=== PATIENT | female | born 1980 | race Caucasian/White ===

== ENCOUNTER 2022-09-22 17:47 | Inpatient (IN) ==
--- NOTE | 2022-09-22 18:25 | ED Triage Note ---
Date of Service September 22, 2022 History of Present Illness This patient was briefly evaluated while in triage. An abbreviated physical exam was performed. This patient is a 41-year-old Female who presents to the ED for evaluation of abdominal pain in the right upper quadrant. Symptoms ongoing for 2 days. Norma yanes believes that it may be an issue with her gallbladder. She does report nausea and vomiting. Physical Exam VITALS: Vitals are noted on the nurse's note and reviewed by myself. GENERAL: This is a 41-year-old female, in no acute distress, well-developed well-nourished. SKIN: The skin was without rashes. MOUTH: Mucous membranes moist. HEART: Regular rate and rhythm without murmurs gallops or rubs. LUNGS: Clear to auscultation bilaterally without wheezes, rales or rhonchi. ABDOMEN: Positive bowel sounds x 4. Tenderness in the right upper quadrant. NEURO: Patient was alert and oriented to person place and time. Initial orders for labs and / or imaging were placed and patient was placed in the waiting area until a bed is available. Please see further documentation for the full ED course.
[2022-09-22 19:23] LABS: Basophils # (auto) 0.08 K/uL (0-0.2); Basophils % (auto) 0.9 %; Eosinophils # (auto) 0.03 K/uL (0-0.50); Eosinophils % (auto) 0.4 %; Hematocrit (blood only) 36.4 % (37.0-47.0); Hemoglobin 12.7 g/dl (12.0-16.0); Immature Granulocytes # (auto) 0.03 K/uL (0.01-0.20); Immature Granulocytes % (auto) 0.4 %; Lymphocytes # (auto) 1.12 K/uL (1.2-3.4); Lymphocytes % (auto) 13.2 %; Mean Corpuscular Hemoglobin 31.3 pg (25.0-34.0); Mean Corpuscular Hgb Conc 34.9 g/dL (32.0-36.0); Mean Corpuscular Volume 89.7 fL (80.0-100.0); Mean Platelet Volume 10.5 fL (9.4-12.4); Monocytes # (auto) 0.49 K/uL (0.11-0.59); Monocytes % (auto) 5.8 %; Neutrophils # (auto) 6.72 K/uL (1.40-6.50); Neutrophils % (auto) 79.3 %; Platelet Count 208 K/uL (130-400); RDW Coefficient of Variation 12.1 % (11.5-14.5); RDW Standard Deviation 39.5 fL (36.4-46.3); Red Blood Count 4.06 M/uL (4.20-5.40); White Blood Count 8.47 K/ul (4.8-10.8)
--- NOTE | 2022-09-22 19:29 | Emergency Department Note ---
Impression & Plan Biliary colic, Cholelithiasis, Abdominal pain, Transaminitis ED Provider Note NAME: TARI HESTER AGE: 41 SEX: F : 1980 ARRIVES VIA: Walk-In INFORMANT: Patient, ED PROVIDER(S): Tor Hartmann MD CHIEF COMPLAINT: Right upper quadrant pain MEDICAL DECISION MAKING: Patient presents due to concern for right upper quadrant pain. IV was established blood work was obtained. The patient declined any pain medication or nausea medication at this time. IV fluids ordered along with right upper quadrant ultrasound. I did review the patient's blood work which shows a normal white count hemoglobin and platelet count. Kidney function is unremarkable. The patient does have a transaminitis with an elevated bilirubin of 2.8. Patient's lipase is not elevated. Urinalysis without evidence of obvious infection. Patient's ultrasound does show gallbladder is dilated and filled with stones and sludge with gallbladder wall thickening. No pericholecystic fluid. I did speak with the on-call surgical PA Andrey Denny who did evaluate the patient. I did convey the findings and the patient I did speak the on-call hospitalist service and the patient was admitted to Dr. Nance. Antibiotics were ordered by surgical team after consultation. Prior /Outside records reviewed: None Differential diagnosis: Appendicitis, ovarian cyst, ovarian torsion, ectopic , TOA, PID, infections, diverticulitis, UTI, obstruction, mesenteric ischemia, aortic pathology, inflammatory bowel disease, renal colic, PUD, pancreatitis, biliary pathology, hernia, volvulus, constipation, as well as other pathologies. Diagnostics, as interpreted by me: ECG: None Cardiac monitoring: An order was placed for continuous cardiac monitoring. The monitor shows a rate of 72 with sinus rhythm. Patient was placed on pulse oximetry Medical decision rules: none Imaging studies: See below HPI: Patient presents due to concern for right upper quadrant pain. The patient states that it woke her up from sleep around 3 AM earlier this morning. The patient states that her symptoms have waxed and waned throughout the day not necessarily any worse with eating. The patient relates that she has had prior attacks over the last several months but was trying to wait till she saw her primary care doctor next week. Patient states that typically with her abdominal discomfort attacks they tend to go away with time but this 1 is never fully gone away. The patient did not take anything for it at home. The patient did feel dizzy at one point to where she felt like she was going to pass out but she just vomited. Patient denies any alcohol tobacco or drug use. No history of abdominal surgeries. PAST MEDICAL HISTORY: See Below PAST SURGICAL HISTORY: See Below SOCIAL HISTORY: See Below HOME MEDICATIONS: See Below ALLERGIES: See Below VITALS: See Below PHYSICAL EXAMINATION: GENERAL: NAD, wearing a mask, non-toxic. EYE EXAM: Normal conjunctiva. PERRL, no anisocoria and EOM's grossly intact w/o pain. NECK: Supple, no nuchal rigidity, no adenopathy, non-tender. No signs of meningismus. FROM of the neck with good chin to chest and neck extension. No stridor. LUNGS: Clear to auscultation. Normal chest wall mechanics. HEART: NSR, no MRG. ABDOMEN: Abdomen soft, right upper quadrant pain, positive Benavidez sign, no masses, no rebound or guarding. BACK: No CVA TTP. SKIN: No rashes and no bruising. UPPER EXTREMITIES: Upper extremities are grossly normal. LOWER EXTREMITIES: Grossly normal, no edema. NEURO EXAM: A&O x3, cranial nerves II-XII grossly intact, normal speech, moves all 4 extremities. Past Med/Surg History Medical History Anxiety Depression Renal colic on right side Surgical History No pertinent past surgical history Social History Smoking Status: Never smoker Preferred Language: Persian Feels Safe at Home: Yes Allergies Allergies Allergy/AdvReac Type Severity Reaction Status Date / Time No Known Allergies Allergy Unknown Verified 02/29/16 22:44 Home Meds Home Medications Medication Instructions Recorded Confirmed doxepin 50 mg capsule 50 mg PO HS 09/22/22 09/22/22 duloxetine 30 mg capsule,delayed 30 mg PO BID 09/22/22 09/22/22 release Results & Data (ED) Vital Signs Vital Signs - 24 hr 09/22/22 17:59 09/22/22 19:38 09/22/22 19:38 Temperature 36.8 C Temperature Source Temporal Artery Scan Pulse Rate 67 Pulse Rate [Finger] 69 Pulse Rhythm [Finger] Regular Respiratory Rate 20 18 Respiratory Effort / Characteristics Non-Labored Respiratory Depth Normal Normal Blood Pressure 145/77 H Blood Pressure [Right Arm] 135/80 Blood Pressure Mean 99 Blood Pressure Mean [Right Arm] 98 Blood Pressure Position Sitting Pulse Oximetry 100 99 Oxygen Delivery Method Room Air Room Air Room Air Sepsis Recent Fever Within 48 Hours No Sepsis New/Unexplained Change in Mental Status No Sepsis Action Taken by Nursing No Action Required 09/22/22 19:38 09/22/22 22:09 Temperature Temperature Source Pulse Rate Pulse Rate [Finger] 66 Pulse Rhythm [Finger] Respiratory Rate 18 Respiratory Effort / Characteristics Respiratory Depth Blood Pressure Blood Pressure [Right Arm] 140/74 Blood Pressure Mean Blood Pressure Mean [Right Arm] 96 Blood Pressure Position Pulse Oximetry 100 Oxygen Delivery Method Room Air Room Air Sepsis Recent Fever Within 48 Hours Sepsis New/Unexplained Change in Mental Status Sepsis Action Taken by [facility] Medications Current Medication List: was personally reviewed by me Laboratory Data Attestation: I reviewed the patient's lab results. 09/22/22 18:45 09/22/22 18:45 Lab Results 09/22/22 09/22/22 09/22/22 Range/Units 18:45 18:45 20:50 WBC 8.47 (4.8-10.8) K/ul RBC 4.06 L (4.20-5.40) M/uL Hgb 12.7 (12.0-16.0) g/dl Hct 36.4 L (37.0-47.0) % MCV 89.7 (80.0-100.0) fL MCH 31.3 (25.0-34.0) pg MCHC 34.9 (32.0-36.0) g/dL RDW Std Deviation 39.5 (36.4-46.3) fL RDW Coeff of Karen 12.1 (11.5-14.5) % Plt Count 208 (130-400) K/uL MPV 10.5 (9.4-12.4) fL Immature Gran % (Auto) 0.4 % Neut % (Auto) 79.3 % Lymph % (Auto) 13.2 % Woods % (Auto) 5.8 % Eos % (Auto) 0.4 % Baso % (Auto) 0.9 % Neut # (Auto) 6.72 H (1.40-6.50) K/uL Lymph # (Auto) 1.12 L (1.2-3.4) K/uL Woods # (Auto) 0.49 (0.11-0.59) K/uL Eos # (Auto) 0.03 (0-0.50) K/uL Baso # (Auto) 0.08 (0-0.2) K/uL Immature Gran # (Auto) 0.03 (0.01-0.20) K/uL Sodium 136 (136-145) mmol/L Potassium 3.8 (3.5-5.1) mmol/L Chloride 101 (98-107) mmol/L Carbon Dioxide 26 (21-32) mmol/L Anion Gap 9 (3-11) BUN 11 (6-23) mg/dl Creatinine 0.77 (0.6-1.2) mg/dl Est Cr Clr Drug Dosing Not Reportable Est GFR ( Amer) 111.9 ml/min Est GFR (Non-Af Amer) 96.6 ml/min BUN/Creatinine Ratio 14.3 (10-20) Glucose 117 H (70-99(Fasting)) mg/dl Calcium 9.7 (8.6-10.3) mg/dl Total Bilirubin 2.8 H (0.2-1.0) mg/dl AST 550 H (13-39) U/L ALT 323 H (7-52) U/L Alkaline Phosphatase 139 H (34-104) U/L Total Protein 7.7 (6.0-8.3) gm/dl Albumin 4.6 (3.4-5.0) gm/dl Globulin 3.1 (2.5-4.0) gm/dl Albumin/Globulin Ratio 1.5 (0.9-2) Lipase 26 (11-82) U/L Urine Color Dark Yellow Urine Appearance Clear (Clear) Urine pH 8.0 H (4.5-7.5) Ur Specific [place] 1.008 (1.000-1.030) Urine Protein Negative (Negative) Urine Glucose (UA) Negative (Negative) Urine Ketones Negative (Negative) Urine Blood Negative (Negative) Urine Nitrite Negative (Negative) Urine Bilirubin Negative (Negative) Urine Urobilinogen Negative (Negative) Ur Leukocyte Esterase 1+ H (Negative) Urine WBC (Auto) 1-5 (0-5) /hpf Urine RBC (Auto) 0-4 (0-4) /hpf U Hyaline Cast (Auto) 1-5 (0-5) /lpf U Epithel Cells (Auto) >30 H (0-5) /lpf Urine Bacteria (Auto) Negative (Negative) Urine Test (Negative) SARS-CoV-2, RNA, NAAT (NEGATIVE) 09/22/22 09/22/22 Range/Units 20:50 22:45 WBC (4.8-10.8) K/ul RBC (4.20-5.40) M/uL Hgb (12.0-16.0) g/dl Hct (37.0-47.0) % MCV (80.0-100.0) fL MCH (25.0-34.0) pg MCHC (32.0-36.0) g/dL RDW Std Deviation (36.4-46.3) fL RDW Coeff of Karen (11.5-14.5) % Plt Count (130-400) K/uL MPV (9.4-12.4) fL Immature Gran % (Auto) % Neut % (Auto) % Lymph % (Auto) % Woods % (Auto) % Eos % (Auto) % Baso % (Auto) % Neut # (Auto) (1.40-6.50) K/uL Lymph # (Auto) (1.2-3.4) K/uL Woods # (Auto) (0.11-0.59) K/uL Eos # (Auto) (0-0.50) K/uL Baso # (Auto) (0-0.2) K/uL Immature Gran # (Auto) (0.01-0.20) K/uL Sodium (136-145) mmol/L Potassium (3.5-5.1) mmol/L Chloride (98-107) mmol/L Carbon Dioxide (21-32) mmol/L Anion Gap (3-11) BUN (6-23) mg/dl Creatinine (0.6-1.2) mg/dl Est Cr Clr Drug Dosing Est GFR ( Amer) ml/min Est GFR (Non-Af Amer) ml/min BUN/Creatinine Ratio (10-20) Glucose (70-99(Fasting)) mg/dl Calcium (8.6-10.3) mg/dl Total Bilirubin (0.2-1.0) mg/dl AST (13-39) U/L ALT (7-52) U/L Alkaline Phosphatase (34-104) U/L Total Protein (6.0-8.3) gm/dl Albumin (3.4-5.0) gm/dl Globulin (2.5-4.0) gm/dl Albumin/Globulin Ratio (0.9-2) Lipase (11-82) U/L Urine Color Urine Appearance (Clear) Urine pH (4.5-7.5) Ur Specific [place] (1.000-1.030) Urine Protein (Negative) Urine Glucose (UA) (Negative) Urine Ketones (Negative) Urine Blood (Negative) Urine Nitrite (Negative) Urine Bilirubin (Negative) Urine Urobilinogen (Negative) Ur Leukocyte Esterase (Negative) Urine WBC (Auto) (0-5) /hpf Urine RBC (Auto) (0-4) /hpf U Hyaline Cast (Auto) (0-5) /lpf U Epithel Cells (Auto) (0-5) /lpf Urine Bacteria (Auto) (Negative) Urine Test Negative (Negative) SARS-CoV-2, RNA, NAAT NEGATIVE (NEGATIVE) Administered Medications Discontinued Medications Sodium Chloride (Nss 1000ml) 1,000 mls @ 999 mls/hr IV .Q1H1M ONE Stop: 09/22/22 20:59 Last Infusion: 09/22/22 21:22 Dose: 0 mls/hr Documented By: Admin: 09/22/22 20:17 Dose: 999 mls/hr Documented By: Cefoxitin Sodium (Mefoxin) 2,000 mg in 60 mls @ 100 mls/hr IV NOW STA Stop: 09/22/22 23:31 Last Admin: 09/22/22 23:32 Dose: 100 mls/hr Documented By: MED Imaging Data Radiologist's Impression: Gallbladder Ultrasound 09/22/22 18:02 Exam(s): US GALLBLADDER EXAM: US Abdomen Limited, Gallbladder CLINICAL HISTORY: Reason for exam: Ruq pain, vomiting. TECHNIQUE: Real-time ultrasound of the right upper quadrant with image documentation. COMPARISON: CT scan from February 29, 2016 FINDINGS: Liver: The liver measures 18.1 cm with mild fatty infiltration. No focal liver lesion is seen. The portal vein is patent nondilated with normal hepatopetal flow. Gallbladder: The gallbladder is dilated and filled with stones and sludge. The gallbladder wall is thickened measuring 5 mm. No pericholecystic fluid is seen. Sonographic Benavidez sign is positive. Common bile duct: The common bile duct is nondilated measuring 6 mm. Pancreas: The visualized portion of the pancreas is unremarkable. IMPRESSION: The gallbladder is dilated and filled with stones and sludge. The gallbladder wall is thickened measuring 5 mm. No pericholecystic fluid is seen. Sonographic Benavidez sign is positive. Consider acute cholecystitis. Electronically signed by: Cl Nance MD 09/22/22 22:14 PM Discharge Plan Visit Data Chief Complaint: Abdominal Pain Stated Complaint: PROBLEMS WITH GALBLADDER ED Provider: Tor Hartmann Discharge Problem: Biliary colic, Cholelithiasis, Abdominal pain, Transaminitis Patient Disposition: Admitted As Inpatient Discharge Instructions Interventions: ED Discharge Assessment Last Done: 09/23/22 02:10
[2022-09-22 19:41] LABS: Alanine Aminotransferase 323 U/L (7-52); Albumin Globulin Ratio 1.5 (0.9-2); Albumin Level 4.6 gm/dl (3.4-5.0); Alkaline Phosphatase 139 U/L (34-104); Anion Gap 9 (3-11); Aspartate Aminotransferase 550 U/L (13-39); BUN Creatinine Ratio 14.3 (10-20); Bilirubin,Total 2.8 mg/dl (0.2-1.0); Blood Urea Nitrogen 11 mg/dl (6-23); Calcium 9.7 mg/dl (8.6-10.3); Carbon Dioxide 26 mmol/L (21-32); Chloride 101 mmol/L (98-107); Est GFR (African American) 111.9 ml/min; Est GFR (Non-African American) 96.6 ml/min; Globulin 3.1 gm/dl (2.5-4.0); Glucose 117 mg/dl (70-99(Fasting)); Lipase 26 U/L (11-82); Potassium 3.8 mmol/L (3.5-5.1); Sodium 136 mmol/L (136-145); Total Protein 7.7 gm/dl (6.0-8.3)
[2022-09-22] MEDS ORDERED: SODIUM CHLORIDE 0.9% 1000ML 1,000 ML IV ONE (19:59)
[2022-09-22 21:15] LABS: Appearance Urine Clear (Clear); Bacteria Urine Automated Negative (Negative); Bilirubin Urine Negative (Negative); Blood Urine Negative (Negative); Color Urine Dark Yellow; Epithelial Cell Urine Auto >30 /lpf (0-5); Glucose Urine UA Negative (Negative); Ketones Urine Negative (Negative); Leukocyte Esterase Urine 1+ (Negative); Nitrite Urine Negative (Negative); Protein Urine Negative (Negative); RBC Urine Automated 0-4 /hpf (0-4); Specific Gravity Urine 1.008 (1.000-1.030); Urobilinogen Urine Negative (Negative)
[2022-09-22 21:16] LABS: Pregnancy Test, Urine Negative (Negative)
--- NOTE | 2022-09-22 22:14 | Ultrasound Report ---
Exam(s): US GALLBLADDER EXAM: US Abdomen Limited, Gallbladder CLINICAL HISTORY: Reason for exam: Ruq pain, vomiting. TECHNIQUE: Real-time ultrasound of the right upper quadrant with image documentation. COMPARISON: CT scan from February 29, 2016 FINDINGS: Liver: The liver measures 18.1 cm with mild fatty infiltration. No focal liver lesion is seen. The portal vein is patent nondilated with normal hepatopetal flow. Gallbladder: The gallbladder is dilated and filled with stones and sludge. The gallbladder wall is thickened measuring 5 mm. No pericholecystic fluid is seen. Sonographic Benavidez sign is positive. Common bile duct: The common bile duct is nondilated measuring 6 mm. Pancreas: The visualized portion of the pancreas is unremarkable. IMPRESSION: The gallbladder is dilated and filled with stones and sludge. The gallbladder wall is thickened measuring 5 mm. No pericholecystic fluid is seen. Sonographic Benavidez sign is positive. Consider acute cholecystitis. Electronically signed by: Cl Nance MD 09/22/22 22:14 PM
[2022-09-22] MEDS ORDERED: cefOXitin 2,000 MG/60 ML BAG IV STA (22:56)
--- NOTE | 2022-09-22 22:59 | Surgery Consultation ---
I discussed this case with the surgical PA and I agree with this plan. MRCP pending. Date of Consultation September 22, 2022 Assessment & Plan (1) Cholelithiasis: I discussed with the treating emergency room physician and I feel the patient is likely suffering from biliary colic. He is having the patient mid on the hospitalist service. We recommend proceeding as follows: Provide analgesics Provide antiemetics Provide IV fluid for hydration Follow serial labs Initiate antibiotics. I have ordered a dose of cefoxitin and this should continue while she is admitted to the hospital. A COVID test has been ordered. We will follow for the results of this I feel that the patient could have some clear liquids up until midnight tonight. I would then make her n.p.o. at that time. Due to the patient's elevated LFTs I feel it is prudent to obtain a GI consultation to see if they feel an ERCP is indicated. I have discussed with the patient due to her gallstones that she will likely require cholecystectomy but we would like to ascertain if she has choledocholithiasis so this can be treated before cholecystectomy is undertaken. I did discuss with the patient the procedure of cholecystectomy outlining the expected postoperative course. I did explain to the patient that if she has choledocholithiasis it would be preferable to treat this prior to undergoing cholecystectomy. Would recommend utilizing only SCDs for DVT prevention, no chemical means until is ascertained what procedures patient will require while she is hospitalized Additional recommendations be forthcoming based on GI recommendations and her clinical course as unfolds. History of Present Illness Reason for Consultation: Cholelithiasis History of Present Illness This is a 41-year-old female who presented to the emergency department secondary to abdominal pain. The patient says that for the past 6 months she has been having on and off right upper quadrant pain that usually lasts about 1 to 2 hours in duration and spontaneously resolves. She notes that the pain seems to be precipitated by eating greasy foods and eating heavy meals. She does not note any other provocative factors. She notes that the pain is sometimes palliated by using a heating pad but usually goes away on its own. With her pain she has not had any fevers but does report occasional chills and sweats wh en the pain occurs. As noted the pain usually only last 1 to 2 hours but the pain has now been present in excess of 24 hours which was out of the ordinary for her usual prompting her visit to the emergency department. With her current presentation she has had nausea and vomiting. In addition the patient notes that her pain radiates to her shoulder. She denies any prior abdominal surgeries. I question patient about her activities of daily living and she says she tries to lead an active lifestyle as she has many pets she has to care for. She resides in a two-story house and is able to negotiate steps without any exertional angina or shortness of breath. She is a lifetime non-smoker and has no family history of premature coronary artery disease. Since arrival to the emergency department the patient has had labs and imaging which I independent reviewed. The patient did have a gallbladder ultrasound that showed patient's gallbladder was dilated and filled with stones. The gallbladder wall was thickened measuring 5 mm. There is no pericholecystic fluid. The common bile duct was nondilated. The reporting technologist did report a positive sonographic Benavidez sign. Labs include a CBC were white blood cell count was normal. The patient's hemoglobin and platelet count was normal and the hematocrit was slightly low at 36.4. Chemistry profile showed sodium, potassium, BUN, and creatinine were normal. The patient was noted to have elevated LFTs with a total bilirubin of 2.8, AST of 550, ALT 323, and alkaline phosphatase of 139. Her lipase was nonelevated. Urinalysis was significant for 1+ leukocyte Estrace but was otherwise not indicative of infection. A urine test was negative. A COVID test was pending. At the time of my interview the patient was resting comfortably in bed and she was in no distress. Concerning past medical history the patient is treated for depression and anxiety Concerning past surgical history she denies any prior surgeries Concerning social history she is a lifetime non-smoker and does not consume alcohol Concerning family history the patient denies any family history of coronary artery disease Allergies Allergy/AdvReac Type Severity Reaction Status Date / Time No Known Allergies Allergy Unknown Verified 02/29/16 22:44 Home Medications Medication Instructions Recorded Confirmed Type doxepin 50 mg capsule 50 mg PO HS 09/22/22 09/22/22 History duloxetine 30 mg capsule,delayed 30 mg PO BID 09/22/22 09/22/22 History release Patient History Social History Smoking Status: Never smoker Preferred Language: Turkish Feels Safe at Home: Yes Review of Systems Constitutional: + chills; no fever Eyes: + corrective lenses Ear, Nose, Mouth, Throat: no hearing loss Respiratory: no cough and no dyspnea Cardiovascular: no chest pain Gastrointestinal: as per Subjective / HPI, + abdominal pain, + nausea and + vomiting Genitourinary: no dysuria Musculoskeletal: no back pain Integumentary: no rash Neurologic: no localized weakness Physical Exam Constitutional: WD/WN, vitals as above Eyes: + anicteric sclerae Corrective lenses noted ENMT: Ears: no hearing impairment and no external ear abnormality Sublingual jaundice is absent Neck: trachea midline Respiratory: normal respiratory effort, lungs clear to auscultation Cardiovascular: Rate/Rhythm: regular rate and regular rhythm Vessels: dorsalis pedis pulses present and radial pulses present Gastrointestinal (Abdomen): Abdomen is soft and nondistended. It is nonrigid. There is no rebound tenderness or guarding. There is no pain in the epigastric area. The patient did have pain in the right upper quadrant with a positive Benavidez sign. Musculoskeletal: No calf tenderness Skin: no rashes Neurologic: moves all extremities Psychiatric: A+Ox3, euthymic affect Results & Data Vital Signs (Past 12 Hours) Vital Signs Temp Pulse Pulse Resp BP BP Pulse Ox 09/22/22 22:09 66 18 140/74 100 09/22/22 19:38 09/22/22 19:38 69 18 135/80 99 09/22/22 19:38 09/22/22 17:59 36.8 C 67 20 145/77 H 100 O2 Del Method 09/22/22 22:09 Room Air 09/22/22 19:38 Room Air 09/22/22 19:38 Room Air 09/22/22 19:38 Room Air 09/22/22 17:59 Room Air PG Care Time/CCT Total # of Minutes Spent Total Time Spent with Patient: Total time spent is greater than 50% in coordination of care (as documented) at patient's floor/unit and/or counseling patient: Coding Level of Care Code 26214 IN/OBS CONSULT LVL 5,80M Diagnoses Cholelithiasis K80.20
--- NOTE | 2022-09-22 23:43 | History & Physical Report ---
Date of Service September 22, 2022 Assessment & Plan (1) Acute cholecystitis: Plan: 41-year-old female with 6-month history of biliary colic presenting with 1 day of chronic severe right upper quadrant pain with associated nausea, vomiting, sweats and chills. Work-up as above suggestive of acute cholecystitis. Also with abnormal liver studies AST = 550, ALT = 323, alkaline phosphatase = 139 and total bilirubin = 2.8 Admit to medical Trend liver studies Check MRCP GI consultation for possible ERCP General surgery consult appreciated Pain control with morphine as needed Zofran as needed for nausea Continue IV antibiotics Mefoxin (2) Abnormal liver function test: Plan: As above. MRCP GI consult Repeat labs in a.m. (3) Depression: Plan: Chronic. Continue home Cymbalta and doxepin F/E/NLR at 80 mL/h x 2 L, electrolytes within normal limits, n.p.o. ProphylaxisSCDs to bilateral lower extremities Codef[place] per discussion with patient Dispositionadmit to medical History of Present Illness Chief Complaint: Right upper quadrant pain Primary Care Provider: Leigh Ann Merrill Michelle Albarran is a pleasant 41-year-old female with no significant past medical or surgical history presenting with acute onset of right upper quadrant pain. Patient reports she has experienced intermittent right upper quadrant pain ongoing for the last 6 months. Yesterday 09/22/2022 around 03 100 patient developed acute onset of severe right upper quadrant pain. The pain has been more persistent than prior episodes, is fairly severe at times and has been constant throughout the day. Also with nausea with several episodes of nonbloody/nonbilious vomiting, sweats and chills. She had some mild diarrhea as well. No additional complaints at this time. Patient specifically denies chest pain, palpitations, cough, shortness of breath. Denies urinary symptoms. Denies rash. In the ER she is afebrile, hemodynamically stable and nontoxic in appearance Work-up suggestive of acute cholecystitis with abnormal liver studies as below. She was evaluated by general surgery ER course: Cefoxitin, normal saline solution Allergies Allergy/AdvReac Type Severity Reaction Status Date / Time No Known Allergies Allergy Unknown Verified 02/29/16 22:44 Home Medications Medication Instructions Recorded Confirmed Type doxepin 50 mg capsule 50 mg PO HS 09/22/22 09/22/22 History duloxetine 30 mg capsule,delayed 30 mg PO BID 09/22/22 09/22/22 History release Past Med/Surg History Medical History (Updated 09/23/22 @ 03:08 by Berta Nance DO) Anxiety Depression Renal colic on right side Surgical History No pertinent past surgical history Social History Smoking Status: Never smoker Preferred Language: Citizen Of [place] Feels Safe at Home: Yes Review of Systems Review of Systems: All systems reviewed & are unremarkable except as noted in HPI & below Physical Exam Physical Exam: General: patient resting comfortably, NAD, non-toxic in appearance, AA&O x 4 Skin: warm, dry, intact, no rashes or lesions HEENT: NC/AT, PERRL, EOMI, anicteric sclera, conjunctiva without injection, external ear normal to inspection and nontender, nares patent, moist mucus membranes, dentition intact, no oropharyngeal lesions, neck supple, trachea midline, no LAD, no thyromegaly, no JVD Heart: +S1/S2, regular, no m/r/g Lungs: equal air entry bilaterally, no rales/rhonchi/wheezes Abd: +BS, soft, ND, right upper quadrant tenderness with no rebound/guarding or peritonitis, positive Benavidez sign, no masses/organomegaly/ascites Ext: warm, 2+ pulses in UE/LE bilaterally, no clubbing/cyanosis or edema Neuro: nonfocal, patient AA&O x 4, speech intact, no facial droop, moving all extremities on command with equal strength 5/5 Results & Data Results & Data Vital Signs (Past 12 Hours) Vital Signs Temp Pulse Pulse Resp BP BP Pulse Ox 09/22/22 22:09 66 18 140/74 100 09/22/22 19:38 09/22/22 19:38 69 18 135/80 99 09/22/22 19:38 09/22/22 17:59 36.8 C 67 20 145/77 H 100 O2 Del Method 09/22/22 22:09 Room Air 09/22/22 19:38 Room Air 09/22/22 19:38 Room Air 09/22/22 19:38 Room Air 09/22/22 17:59 Room Air Laboratory Results Laboratory Results WBC 8.47 K/ul (4.8-10.8) 09/22/22 18:45 RBC 4.06 M/uL (4.20-5.40) L 09/22/22 18:45 Hgb 12.7 g/dl (12.0-16.0) 09/22/22 18:45 Hct 36.4 % (37.0-47.0) L 09/22/22 18:45 MCV 89.7 fL (80.0-100.0) 09/22/22 18:45 MCH 31.3 pg (25.0-34.0) 09/22/22 18:45 MCHC 34.9 g/dL (32.0-36.0) 09/22/22 18:45 RDW Std Deviation 39.5 fL (36.4-46.3) 09/22/22 18:45 RDW Coeff of Karen 12.1 % (11.5-14.5) 09/22/22 18:45 Plt Count 208 K/uL (130-400) 09/22/22 18:45 MPV 10.5 fL (9.4-12.4) 09/22/22 18:45 Immature Gran % (Auto) 0.4 % 09/22/22 18:45 Neut % (Auto) 79.3 % 09/22/22 18:45 Lymph % (Auto) 13.2 % 09/22/22 18:45 [place] % (Auto) 5.8 % 09/22/22 18:45 Eos % (Auto) 0.4 % 09/22/22 18:45 Baso % (Auto) 0.9 % 09/22/22 18:45 Neut # (Auto) 6.72 K/uL (1.40-6.50) H 09/22/22 18:45 Lymph # (Auto) 1.12 K/uL (1.2-3.4) L 09/22/22 18:45 [place] # (Auto) 0.49 K/uL (0.11-0.59) 09/22/22 18:45 Eos # (Auto) 0.03 K/uL (0-0.50) 09/22/22 18:45 Baso # (Auto) 0.08 K/uL (0-0.2) 09/22/22 18:45 Immature Gran # (Auto) 0.03 K/uL (0.01-0.20) 09/22/22 18:45 Sodium 136 mmol/L (136-145) 09/22/22 18:45 Potassium 3.8 mmol/L (3.5-5.1) 09/22/22 18:45 Chloride 101 mmol/L (98-107) 09/22/22 18:45 Carbon Dioxide 26 mmol/L (21-32) 09/22/22 18:45 Anion Gap 9 (3-11) 09/22/22 18:45 BUN 11 mg/dl (6-23) 09/22/22 18:45 Creatinine 0.77 mg/dl (0.6-1.2) 09/22/22 18:45 Est Cr Clr Drug Dosing Not Reportable 09/22/22 18:45 Est GFR ( Amer) 111.9 ml/min 09/22/22 18:45 Est GFR (Non-Af Amer) 96.6 ml/min 09/22/22 18:45 BUN/Creatinine Ratio 14.3 (10-20) 09/22/22 18:45 Glucose 117 mg/dl (70-99(Fasting)) H 09/22/22 18:45 Calcium 9.7 mg/dl (8.6-10.3) 09/22/22 18:45 Total Bilirubin 2.8 mg/dl (0.2-1.0) H 09/22/22 18:45 AST 550 U/L (13-39) H 09/22/22 18:45 ALT 323 U/L (7-52) H 09/22/22 18:45 Alkaline Phosphatase 139 U/L (34-104) H 09/22/22 18:45 Total Protein 7.7 gm/dl (6.0-8.3) 09/22/22 18:45 Albumin 4.6 gm/dl (3.4-5.0) 09/22/22 18:45 Globulin 3.1 gm/dl (2.5-4.0) 09/22/22 18:45 Albumin/Globulin Ratio 1.5 (0.9-2) 09/22/22 18:45 Lipase 26 U/L (11-82) 09/22/22 18:45 Urine Color Dark Yellow 09/22/22 20:50 Urine Appearance Clear (Clear) 09/22/22 20:50 Urine pH 8.0 (4.5-7.5) H 09/22/22 20:50 Ur Specific [place] 1.008 (1.000-1.030) 09/22/22 20:50 Urine Protein Negative (Negative) 09/22/22 20:50 Urine Glucose (UA) Negative (Negative) 09/22/22 20:50 Urine Ketones Negative (Negative) 09/22/22 20:50 Urine Blood Negative (Negative) 09/22/22 20:50 Urine Nitrite Negative (Negative) 09/22/22 20:50 Urine Bilirubin Negative (Negative) 09/22/22 20:50 Urine Urobilinogen Negative (Negative) 09/22/22 20:50 Ur Leukocyte Esterase 1+ (Negative) H 09/22/22 20:50 Urine WBC (Auto) 1-5 /hpf (0-5) 09/22/22 20:50 Urine RBC (Auto) 0-4 /hpf (0-4) 09/22/22 20:50 U Hyaline Cast (Auto) 1-5 /lpf (0-5) 09/22/22 20:50 U Epithel Cells (Auto) >30 /lpf (0-5) H 09/22/22 20:50 Urine Bacteria (Auto) Negative (Negative) 09/22/22 20:50 Urine Test Negative (Negative) 09/22/22 20:50 SARS-CoV-2, RNA, NAAT NEGATIVE (NEGATIVE) 09/22/22 22:45 Impressions Gallbladder Ultrasound 09/22/22 18:02 Exam(s): US GALLBLADDER EXAM: US Abdomen Limited, Gallbladder CLINICAL HISTORY: Reason for exam: Ruq pain, vomiting. TECHNIQUE: Real-time ultrasound of the right upper quadrant with image documentation. COMPARISON: CT scan from February 29, 2016 FINDINGS: Liver: The liver measures 18.1 cm with mild fatty infiltration. No focal liver lesion is seen. The portal vein is patent nondilated with normal hepatopetal flow. Gallbladder: The gallbladder is dilated and filled with stones and sludge. The gallbladder wall is thickened measuring 5 mm. No pericholecystic fluid is seen. Sonographic Benavidez sign is positive. Common bile duct: The common bile duct is nondilated measuring 6 mm. Pancreas: The visualized portion of the pancreas is unremarkable. IMPRESSION: The gallbladder is dilated and filled with stones and sludge. The gallbladder wall is thickened measuring 5 mm. No pericholecystic fluid is seen. Sonographic Benavidez sign is positive. Consider acute cholecystitis. Electronically signed by: Cl Nance MD 09/22/22 22:14 PM PG Care Time/CCT Total # of Minutes Spent Total Time Spent with Patient: Total time spent is greater than 50% in coordination of care (as documented) at patient's floor/unit and/or counseling patient: Coding Level of Care Code 53305 INT INP/OBS CARE 2/MIN Diagnoses Acute cholecystitis K81.0 Abnormal liver function test R79.89 Depression F32.9
[2022-09-23] MEDS ORDERED: ACETAMINOPHEN 325 MG TAB PO PRN (01:56)
[2022-09-23] MEDS ORDERED: MoRPHine SULFATE 2 MG/ML CARP IV PRN ×2 (01:56)
[2022-09-23] MEDS ORDERED: ONDANSETRON INJ 2 MG/ML 2 ML VIAL IV PRN ×2 (01:56→16:02)
[2022-09-23] MEDS ORDERED: DOCUSATE SODIUM 100 MG CAP PO PRN (01:56)
[2022-09-23] MEDS ORDERED: POLYETHYLENE (MIRALAX) 17 GM PACK PO PRN (01:56)
[2022-09-23] MEDS: LACTATED RINGER'S 1,000 ML IV SCH ×2 (02:40→16:47)
[2022-09-23] MEDS: DULoxetine HCL 30 MG CAP PO SCH ×3 (03:27→21:34)
[2022-09-23] MEDS: DOXEPIN HCL 50 MG CAPSULE PO SCH ×2 (03:27→21:34)
[2022-09-23] MEDS: cefOXitin 2,000 MG in DEXTROSE 5% 50 ML IV SCH ×4 (05:57→23:45)
--- NOTE | 2022-09-23 08:23 | Gastrointestinal Consultation ---
Supervising physician note As supervising physician for JANET Chow I have discussed the case and plans for this patient with Jenniffer Williamson. I agree she needs ERCP and will be managed by the interventional team from [facility]. Then she will have surgery. I have spent 15 minutes reviewing the records and discussing the ultimate plan with JANET Chow. I did not examine the patient as she has been seen by the other GI service. Date of Consultation September 23, 2022 Assessment & Plan (1) Abnormal liver function test: Acute cholecystitis with abnormal liver function testing: Patient has had approximately 6-month history of biliary colic with worsening of abdominal pain 2 days ago. Right upper quadrant ultrasound consistent with dilated gallbladder filled with stones and sludge and thickened gallbladder wall measuring 5 mm - findings consistent with acute cholecystitis. LFT elevation consistent with gallbladder obstruction noted on ultrasound. Surgical services were consulted who requested GI consult to determine if ERCP is indicated. Medicine service has ordered MRCP which is pending. I have discussed patient case with the [facility] service to determine if ERCP will be completed. We will continue to monitor. Case reviewed with Dr. Gary. Please refer to supervising physician addendum for further recommendations. I have spent 30 minutes of discrete time performing the activities of this visit which include but are not limited to review of the medical record, obtaining a history, physical exam, and entering information in the electronic record. (2) Acute cholecystitis: History of Present Illness Attending Physician: Willie Wang MD History of Present Illness The patient is a pleasant 41-year-old female with a by 6-month history of biliary colic who presented with severe right upper quadrant pain that began 09/21/2022. Imaging suggestive of acute cholecystitis with abnormal liver studies AST = 550, ALT = 323, alkaline phosphatase = 139 and total bilirubin = 2.8. The GI service was consulted at request of surgery as LFTs are elevated to determine if ERCP is indicated. The patient reports that she has had gallbladder attacks now going on for months. She gets right upper quadrant pain lasting approximately 2 to 4 hours. Pain worsened Tuesday morning around 2 AM. Reports the pain currently is well controlled unless she presses on her right upper abdomen. She had associated nausea and vomiting with sweats and chills. Denies fever. Reports 2 days of liquid stools with last bowel movement being 09/22/2022. Her last menstrual period began early July 2022. She does have regular menses. Lifetime non-smoker. Denies alcohol intake. Denies recreational drug use including marijuana. She is a single mother with 3 children ages 21, 18, 14. She does not work outside of her home. Allergies Allergy/AdvReac Type Severity Reaction Status Date / Time No Known Allergies Allergy Unknown Verified 02/29/16 22:44 Home Medications Medication Instructions Recorded Confirmed Type doxepin 50 mg capsule 50 mg PO HS 09/22/22 09/22/22 History duloxetine 30 mg capsule,delayed 30 mg PO BID 09/22/22 09/22/22 History release Patient History Medical History Anxiety Depression Renal colic on right side Surgical History No pertinent past surgical history Social History Smoking Status: Never smoker Hx Alcohol Use: No Hx Substance Use: No Preferred Language: Maltese Communication Ability: Effective 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 Beliefs That Will Affect Care: None Current Living Situation: Alone Other Information That Helps Us Care for You: No Feels Safe at Home: Yes Safety Concerns: Feels Safe At This Time Assistive Devices: Glasses Review of Systems Review of Systems: All systems reviewed & are unremarkable except as noted in Subjective Physical Exam Constitutional: WD/WN, vitals as above Respiratory: normal respiratory effort, lungs clear to auscultation Cardiovascular: RRR, no murmur, no edema Gastrointestinal (Abdomen): Inspection/Auscultation: abdomen normal to inspection and normal bowel sounds Percussion/Palpation: + abdomen tender (RUQ) and abdomen soft; no guarding and abdomen not rigid Skin: + jaundice Results & Data Vital Signs (Past 12 Hours) Vital Signs Temp Pulse Resp BP BP Pulse Ox O2 Del Method 09/23/22 07:10 37.1 C 65 16 124/80 99 Room Air 09/23/22 02:37 37.1 C 64 18 125/79 99 Room Air 09/23/22 02:10 100 Room Air 09/23/22 02:04 63 20 129/65 100 Room Air 09/22/22 22:09 66 18 140/74 100 Room Air Laboratory Results Laboratory Results - last 24 hr 09/22/22 09/22/22 09/22/22 18:45 18:45 20:50 WBC 8.47 RBC 4.06 L Hgb 12.7 Hct 36.4 L MCV 89.7 MCH 31.3 MCHC 34.9 RDW Std Deviation 39.5 RDW Coeff of Karen 12.1 Plt Count 208 MPV 10.5 Immature Gran % (Auto) 0.4 Neut % (Auto) 79.3 Lymph % (Auto) 13.2 [place] % (Auto) 5.8 Eos % (Auto) 0.4 Baso % (Auto) 0.9 Neut # (Auto) 6.72 H Lymph # (Auto) 1.12 L [place] # (Auto) 0.49 Eos # (Auto) 0.03 Baso # (Auto) 0.08 Immature Gran # (Auto) 0.03 Sodium 136 Potassium 3.8 Chloride 101 Carbon Dioxide 26 Anion Gap 9 BUN 11 Creatinine 0.77 Est Cr Clr Drug Dosing Not Reportable Est GFR ( Amer) 111.9 Est GFR (Non-Af Amer) 96.6 BUN/Creatinine Ratio 14.3 Glucose 117 H Calcium 9.7 Total Bilirubin 2.8 H AST 550 H ALT 323 H Alkaline Phosphatase 139 H Total Protein 7.7 Albumin 4.6 Globulin 3.1 Albumin/Globulin Ratio 1.5 Lipase 26 Urine Color Dark Yellow Urine Appearance Clear Urine pH 8.0 H Ur Specific [place] 1.008 Urine Protein Negative Urine Glucose (UA) Negative Urine Ketones Negative Urine Blood Negative Urine Nitrite Negative Urine Bilirubin Negative Urine Urobilinogen Negative Ur Leukocyte Esterase 1+ H Urine WBC (Auto) 1-5 Urine RBC (Auto) 0-4 U Hyaline Cast (Auto) 1-5 U Epithel Cells (Auto) >30 H Urine Bacteria (Auto) Negative Urine Test SARS-CoV-2, RNA, NAAT 09/22/22 09/22/22 20:50 22:45 WBC RBC Hgb Hct MCV MCH MCHC RDW Std Deviation RDW Coeff of Karen Plt Count MPV Immature Gran % (Auto) Neut % (Auto) Lymph % (Auto) [place] % (Auto) Eos % (Auto) Baso % (Auto) Neut # (Auto) Lymph # (Auto) [place] # (Auto) Eos # (Auto) Baso # (Auto) Immature Gran # (Auto) Sodium Potassium Chloride Carbon Dioxide Anion Gap BUN Creatinine Est Cr Clr Drug Dosing Est GFR ( Amer) Est GFR (Non-Af Amer) BUN/Creatinine Ratio Glucose Calcium Total Bilirubin AST ALT Alkaline Phosphatase Total Protein Albumin Globulin Albumin/Globulin Ratio Lipase Urine Color Urine Appearance Urine pH Ur Specific [place] Urine Protein Urine Glucose (UA) Urine Ketones Urine Blood Urine Nitrite Urine Bilirubin Urine Urobilinogen Ur Leukocyte Esterase Urine WBC (Auto) Urine RBC (Auto) U Hyaline Cast (Auto) U Epithel Cells (Auto) Urine Bacteria (Auto) Urine Test Negative SARS-CoV-2, RNA, NAAT NEGATIVE Diagnostic Findings Gallbladder Ultrasound 09/22/22 18:02 Exam(s): US GALLBLADDER EXAM: US Abdomen Limited, Gallbladder CLINICAL HISTORY: Reason for exam: Ruq pain, vomiting. TECHNIQUE: Real-time ultrasound of the right upper quadrant with image documentation. COMPARISON: CT scan from February 29, 2016 FINDINGS: Liver: The liver measures 18.1 cm with mild fatty infiltration. No focal liver lesion is seen. The portal vein is patent nondilated with normal hepatopetal flow. Gallbladder: The gallbladder is dilated and filled with stones and sludge. The gallbladder wall is thickened measuring 5 mm. No pericholecystic fluid is seen. Sonographic Benavidez sign is positive. Common bile duct: The common bile duct is nondilated measuring 6 mm. Pancreas: The visualized portion of the pancreas is unremarkable. IMPRESSION: The gallbladder is dilated and filled with stones and sludge. The gallbladder wall is thickened measuring 5 mm. No pericholecystic fluid is seen. Sonographic Benavidez sign is positive. Consider acute cholecystitis. Electronically signed by: Cl Nance MD 09/22/22 22:14 PM
[2022-09-23 08:58] LABS: Hematocrit (blood only) 32.1 % (37.0-47.0); Hemoglobin 11.2 g/dl (12.0-16.0); Mean Corpuscular Hemoglobin 31.5 pg (25.0-34.0); Mean Corpuscular Hgb Conc 34.9 g/dL (32.0-36.0); Mean Corpuscular Volume 90.2 fL (80.0-100.0); Mean Platelet Volume 10.6 fL (9.4-12.4); Platelet Count 158 K/uL (130-400); RDW Coefficient of Variation 12.2 % (11.5-14.5); RDW Standard Deviation 40.2 fL (36.4-46.3); Red Blood Count 3.56 M/uL (4.20-5.40); White Blood Count 4.85 K/ul (4.8-10.8)
[2022-09-23] MEDS ORDERED: DULoxetine HCL 30 MG CAP PO SCH (09:00)
[2022-09-23 09:02] LABS: Albumin Level 3.9 gm/dl (3.4-5.0); BUN Creatinine Ratio 10.1 (10-20); Bilirubin Direct 2.9 mg/dl (0-0.2); Bilirubin,Total 4.8 mg/dl (0.2-1.0); Calcium 8.8 mg/dl (8.6-10.3); Creatinine Clr Calc Pharmacy 93.5 ml/min; Est GFR (African American) 108.5 ml/min; Est GFR (Non-African American) 93.6 ml/min; Potassium 3.7 mmol/L (3.5-5.1); Total Protein 6.3 gm/dl (6.0-8.3)
--- NOTE | 2022-09-23 09:37 | Magnetic Resonance Report ---
MRCP CLINICAL HISTORY: acute cholecystitis - abnormal LFTs TECHNIQUE: Utilizing a 1.5 Yusra magnet and dedicated coil, multiplanar, multiecho imaging of the [facility] abdomen was performed utilizing heavily T2 weighted pulsing sequences without IV contrast. COMPARISON STUDY: CT of the abdomen and pelvis February 29, 2016. Right upper quadrant ultrasound September 22, 2022. FINDINGS: Caliber of the common bile duct is at upper limits of normal, measuring 6 mm. There are denis pected small filling defects within the dependent aspect of the distal common bile duct. These favor small common bile duct calculi. There are numerous gallstones within the gallbladder. The gallbladder is mildly distended. No pericholecystic fluid is present. No hepatic lesions are identified on this unenhanced exam. Spleen, adrenal glands and kidneys are normal. There is no peripancreatic infiltrati on or fluid. There is no pancreatic ductal dilatation. The caliber of visualized small and large keyana l are normal. IMPRESSION: 1. Suspected small distal common bile duct calculi. Top normal caliber common bile duct. 2. Cholelithiasis with mild gallbladder distention. If clinically indicated, a hepatobiliary scan cou ld be obtained to evaluate for acute cholecystitis. ACT 112: Negative or not required by law. Electronically signed by: Anthony Martinez M.D. 09/23/2022 9:34 AM
--- NOTE | 2022-09-23 10:50 | Communication Note ---
Date of Service: September 23, 2022 This is a 41 y/o female admitted with 6 months of intermittent RUQ pain suggestive of biliary colic, and presented with RUQ abd pain, US ABD suggesting a dilated gallbladder filled with stones and sludge, and elevated LFTs. We were asked to evaluate this pt for possible ERCP. AST 550-->311 ALT 323 -->284 ALP 139-->146 Tbili 2.8-->4.8 Dbili 2.9 WBC 8-->4.8 HGB 12.7-->11.2 Lipase 26 She was seen briefly. States her pain is relieved with analgesia. Denies current abd pain, n/v, melena, hematochezia, fever, chills, jaundice, CP, SOB. 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 Denies ETOH, tobacco, new medication use. No prior surgeries. Gen: NAD, afebrile HEENT: Slight icterus Resp: Normal resp effort Cardiac: RRR ABD: Soft, mild RUQ TTP, no rebound, guarding, distention. BS x 4 quadrants Skin: Warm, dry Neuro: AAO x 3 - MRCP today as below: FINDINGS: Caliber of the common bile duct is at upper limits of normal, measuring 6 mm. There are suspected small filling defects within the dependent aspect of the distal common bile duct. These favor small common bile duct calculi. There are numerous gallstones within the gallbladder. The gallbladder is mildly distended. No pericholecystic fluid is present. No hepatic lesions are identified on this unenhanced exam. Spleen, adrenal glands and kidneys are normal. There is no peripancreatic infiltration or fluid. There is no pancreatic ductal dilatation. The caliber of visualized small and large bowel are normal. IMPRESSION: 1. Suspected small distal common bile duct calculi. Top normal caliber common bile duct. 2. Cholelithiasis with mild gallbladder distention. If clinically indicated, a hepatobiliary scan could be obtained to evaluate for acute cholecystitis. Assessment: 41 y/o female with RUQ abd pain, imaging suggestive of cholelithiasis, w/ dilated gallbladder, and MRCP suggesting small distal common duct calculi, CBD 6 mm which is top normal. Overall presentation consistent with cholelithiasis and suggestion of choledocholithiasis based upon imaging and lab results. We were asked to evaluate her for possible ERCP. Plan: - Keep NPO - IVF, empiric IV ABX as per primary/surgical service - Discussed case with attending and advanced endoscopist. - We would like to arrange EUS +/- ERCP today for suspected choledocholithiasis pending OR availability, time to be determined by them - Surgery consult to evaluate for cholecystectomy Please see addendum below with additional recommendation from my supervising physician I have personally seen and examined the patient with Elidia Cosme PA-C. Her note reflects my exam and findings. I agree with her impression and plan. Will plan on ERCP today. Jhon Haynes M.D.
--- NOTE | 2022-09-23 12:47 | Anesthesiology Consultation ---
Date of Service September 23, 2022 Assessment & Plan ASA ASA2 Proposed Anesthesia Anesthesia Type: MAC Risk / Benefits Reviewed With: PT / POA / Parent / Guardian, Accepts Plan and Informed Consent Obtained History Surgery Operation Date: 09/23/22 13:30 Proposed Procedures p Endoscopic Retrograde Cholangiopancreato - Gayathri Harrington DO s Endoscopic Ultrasonography Upper - Gayathri Harrington DO Height/Weight Height: 5 ft 1 in Weight: 84.8 kg Allergies Allergy/AdvReac Type Severity Reaction Status Date / Time No Known Allergies Allergy Unknown Verified 02/29/16 22:44 Medications Home Medications Medication Instructions Recorded Confirmed Last Taken doxepin 50 mg capsule 50 mg PO HS 09/22/22 09/22/22 Unknown duloxetine 30 mg capsule,delayed 30 mg PO BID 09/22/22 09/22/22 Unknown release Active Medications Generic Name Dose Route Start Last Admin Trade Name Freq PRN Reason Stop Dose Admin Doxepin HCl 50 mg 09/23/22 03:15 09/23/22 03:27 Doxepin Hcl 50 Mg Capsule PO 10/23/22 03:14 50 mg HS MARIO Administration Duloxetine HCl 30 mg 09/23/22 03:15 09/23/22 07:46 Duloxetine Hcl 30 Mg Cap PO 10/23/22 03:14 30 mg BID MARIO Administration Cefoxitin Sodium 2,000 mg/ 60 mls @ 100 mls/hr 09/23/22 06:00 09/23/22 11:58 Dextrose IV 10/03/22 05:59 100 mls/hr Q6H MARIO Administration Lactated Ringer's 1,000 mls @ 80 mls/hr 09/23/22 01:56 09/23/22 02:40 Lr IV 09/24/22 02:55 80 mls/hr .[id number] MARIO Administration Morphine Sulfate 2 mg 09/23/22 01:56 09/23/22 02:40 Morphine Sulfate 2 Mg/Ml Carp IV 10/07/22 01:55 2 mg Q3H PRN Administration Pain (6,7,8,9,10) NPO Date Last Intake of Fluids: 09/23/22 Time Last Intake of Fluids: 08:00 Last Intake of Fluids Comment: sip with meds Date Last Intake of Solids: 09/22/22 Time Last Intake of Solids: 10:00 Past Medical History Medical History Anxiety Depression Renal colic on right side Exercise / Class Metabolic Activity II 4-5 Yardwork/Stairs/Walk up hill Past Surgical History Surgical History No pertinent past surgical history Past Anesthesia History No Hx of Anesthesia Complications and No Family Hx of Anesthesia Complications History of PONV No Hx of PONV and No Hx of Motion Sickness Social History Smoking Status: Never smoker Hx Alcohol Use: No Hx Substance Use: No Review of Systems denies fever/cough/ colds/ chest pain/ SOB/ CODI denies CODI Physical Exam Vital Signs Last Vital Signs Temp 36.8 C 09/23/22 12:23 Pulse 77 09/23/22 12:23 Resp 20 09/23/22 12:23 BP 148/86 H 09/23/22 12:23 Pulse Ox 98 09/23/22 12:23 O2 Del Method Room Air 09/23/22 12:23 ENMT Mouth: + poor dentition (pt with multiple, chipped,missing, broken teeth. most glaring noted); no TMJ abnormality and no dentition abnormality Thyromental Distance: > or= 3.5 Finger Breadths Mallampati Class: III Mouth / Teeth: 1. broken 2. gapped, tooth root Neck neck extension not limited Respiratory normal respiratory effort; no respiratory distress Auscultation: lungs clear to auscultation bilaterally Cardiovascular Rate/Rhythm: regular rate and regular rhythm Neurologic moves all extremities Psychiatric Orientation: alert and oriented x 3 Testing Laboratory Results 09/23/22 08:04 09/23/22 08:04 Urine Color Dark Yellow 09/22/22 20:50 Urine Appearance Clear (Clear) 09/22/22 20:50 Urine pH 8.0 (4.5-7.5) H 09/22/22 20:50 Ur Specific [place] 1.008 (1.000-1.030) 09/22/22 20:50 Urine Protein Negative (Negative) 09/22/22 20:50 Urine Glucose (UA) Negative (Negative) 09/22/22 20:50 Urine Ketones Negative (Negative) 09/22/22 20:50 Urine Nitrite Negative (Negative) 09/22/22 20:50 Ur Leukocyte Esterase 1+ (Negative) H 09/22/22 20:50 Urine WBC (Auto) 1-5 /hpf (0-5) 09/22/22 20:50 Urine RBC (Auto) 0-4 /hpf (0-4) 09/22/22 20:50 U Hyaline Cast (Auto) 1-5 /lpf (0-5) 09/22/22 20:50 U Epithel Cells (Auto) >30 /lpf (0-5) H 09/22/22 20:50 Urine Bacteria (Auto) Negative (Negative) 09/22/22 20:50 Urine Test Negative (Negative) 09/22/22 20:50 09/22/22 20:50 Urine Test Negative
--- NOTE | 2022-09-23 12:49 | History & Physical Bridge Note ---
Date of Service September 23, 2022 History & Physical Bridge Note I have examined the patient, reviewed the History & Physical and in the interval since the performance of the History & Physical I have noted the following changes of clinical significance: no changes noted. Patient presented with abdominal pain and now has a significant elevation of her liver associated enzymes with a bilirubin of greater than 4. Her MRCP does indicate that there are filling defects within the distal common bile duct. The next best step would be ERCP for biliary sphincterotomy and gallstone extraction. I discussed the risks and benefits of ERCP with the patient to include bleeding, infection, perforation, pain failed biliary cannulation and need for follow-up studies.
[2022-09-23] MEDS ORDERED: LIDOCAINE 2% 2 ML VIAL/AMP(20MG/ML) INFIL ONE (12:53)
[2022-09-23] MEDS ORDERED: PROPOFOL IV EMULSION 10 MG/ML 20 ML VIAL IV ONE ×2 (12:53→13:14)
[2022-09-23] MEDS ORDERED: fentaNYL citrate PF 100 MCG/2 ML VIAL ONE ×3 (13:12→16:04)
[2022-09-23] MEDS ORDERED: ROCURONIUM BROMIDE 10 MG/ML 5 ML VIAL IV ONE ×3 (13:12→14:57)
[2022-09-23] MEDS ORDERED: MIDAZOLAM HCL 1 MG/ML 2ML VIAL ONE (13:14)
--- NOTE | 2022-09-23 13:15 | Surgery Progress Note ---
Date of Service September 23, 2022 Assessment & Plan (1) Abnormal liver function test: (2) Acute cholecystitis: (3) Cholelithiasis: (4) Choledocholithiasis: Plan: Patient will undergo ERCP by GI shortly. We will proceed with laparoscopic cholecystectomy immediately after this procedure. I have described the details of the laparoscopic cholecystectomy to the patient including the risks and benefits. She expressed understanding of this explanation and all of her questions were answered. Consent was obtained. Admission and Anticipated Discharge Date Admission Date: September 22, 2022 Subjective Patient seen this am. GI planning for ERCP today. Patient says her pain has subsided since last night. Denies fevers or chills. Physical Exam Constitutional: WD/WN, vitals as above Respiratory: normal respiratory effort; no respiratory distress, no labored breathing and does not use accessory muscles Cardiovascular: Rate/Rhythm: regular rate Extremities: no calf tenderness and no pedal edema Extremities well perfused Gastrointestinal (Abdomen): Percussion/Palpation: abdomen soft; abdomen nontender, no guarding and abdomen not rigid Results & Data Vital Signs (Past 12 Hours) Vital Signs Temp Pulse Resp BP BP Pulse Ox O2 Del Method 09/23/22 12:23 36.8 C 77 20 148/86 H 98 Room Air 09/23/22 07:10 37.1 C 65 16 124/80 99 Room Air 09/23/22 02:37 37.1 C 64 18 125/79 99 Room Air 09/23/22 02:10 100 Room Air 09/23/22 02:04 63 20 129/65 100 Room Air Laboratory Results T bili elevated to 4.8 this am MRCP revealed stones in CBD PG Care Time/CCT Total # of Minutes Spent Total Time Spent with Patient: Total time spent is greater than 50% in coordination of care (as documented) at patient's floor/unit and/or counseling patient: Coding Level of Care Code 65525 SUB INP/OBS CARE 06/16MIN Diagnoses Abnormal liver function test R79.89 Acute cholecystitis K81.0 Cholelithiasis K80.20 Cholecystitis acuity: acute Cholecystitis presence: with cholecystitis Cholelithiasis location: gallbladder Choledocholithiasis K80.50 (3) Cholelithiasis Cholecystitis acuity: acute Cholecystitis presence: with cholecystitis Cholelithiasis location: gallbladder
[2022-09-23] MEDS ORDERED: INDOMETHACIN 50 MG SUPP PR ONE (13:30)
[2022-09-23] MEDS ORDERED: BUPIVACAINE/EPINEPHRINE 0.5% MPF 1:200,000 30 ML VIAL ONE (13:30)
--- NOTE | 2022-09-23 14:03 | Post Operative Brief Note ---
Immediate Post Op Note v1 Date of Surgery September 23, 2022 Pre & Post Diagnosis Operation Date: 09/23/22 13:30 Pre-Op Diagnosis: Acute cholecystitis Post-Op Diagnosis: Cholangitis/CBD stones I identified the patient and participated in the time-out.: Yes Procedure Operation Date: 09/23/22 13:30 Actual Procedures p Endoscopic Retrograde Cholangiopancreatotomy(Not Applicable) - Gayathri Harrington DO Surgeon Gayathri Harrington DO Shot Packer none Estimated Blood Loss 0 Findings Consistent with Post-Op Diagnosis
[2022-09-23] MEDS ORDERED: DEXAMETHASONE SOD INJ 4 MG/ML VIAL ONE (14:08)
[2022-09-23] MEDS ORDERED: ONDANSETRON INJ 2 MG/ML 2 ML VIAL ONE (14:08)
--- NOTE | 2022-09-23 14:11 | Communication Note ---
Date of Service: September 23, 2022 The patient underwent ERCP this afternoon. She was found to have evidence of multiple stones and some pus in the CBD consistent with lithiasis and cholangitis. Multiple stones were removed, a biliary stent was placed after sphincterotomy was performed. Recommendations Cholecystectomy per general surgery ERCP in 6 to 8 weeks for stent removal Antibiotic coverage for 2 weeks given cholangitis Avoid nonsteroidals for 1 week May have clear liquids from a GI perspective
--- NOTE | 2022-09-23 14:12 | GI REPORT ---
Patient Name: Michelle Albarran Procedure Date: 09/23/2022 1:47 PM Date of : 1980 Admit Type: Inpatient Age: 41 Gender: Female Attending MD: Gayathri Harrington DO, Procedure: ERCP Providers: Gayathri Harrington DO Referring MD: Howard Dela Cruz Do Indications: Abdominal pain of suspected biliary origin, Abnormal MRCP, Jaundice Medicines: General Anesthesia Complications: No immediate complications. Estimated blood loss: Minimal. Estimated Blood Loss: Estimated blood loss was minimal. Procedure: Pre-Anesthesia Assessment: - Prior to the procedure, a History and Physical was performed, and patient medications, allergies and sensitivities were reviewed. The patient's tolerance of previous anesthesia was reviewed. - The risks and benefits of the procedure and the sedation options and risks were discussed with the patient. All questions were answered and informed consent was obtained. - Patient identification and proposed procedure were verified prior to the procedure by the physician, the nurse and the global marketing coordinator. The procedure was verified in the procedure room. - Pre-procedure physical examination revealed no contraindications to sedation. - ASA Grade Assessment: II - A patient with mild systemic disease. - After reviewing the risks and benefits, the patient was deemed in satisfactory condition to undergo the procedure. - The anesthesia plan was to use general anesthesia. - Immediately prior to administration of medications, the patient was re-assessed for adequacy to receive sedatives. - The heart rate, respiratory rate, oxygen saturations, blood pressure, adequacy of pulmonary ventilation, and response to care were monitored throughout the procedure. - The physical status of the patient was re-assessed after the procedure. After obtaining informed consent, the scope was passed under direct vision. Throughout the procedure, the patient's blood pressure, pulse, and oxygen saturations were monitored continuously. The Duodenoscope was introduced through the mouth, and advanced to the duodenum and used to inject contrast into the bile duct. The ERCP was accomplished without difficulty. The patient tolerated the procedure well. Findings: The mirror painter film was normal. The esophagus was successfully intubated under direct vision without detailed examination of the pharynx, larynx, and associated structures, and upper GI tract. The upper GI tract was grossly normal. The major papilla was normal. The bile duct was deeply cannulated with the short-nosed traction sphincterotome and guidewire. Contrast was injected. I personally interpreted the bile duct images. Contrast extended to the hepatic ducts. The main bile duct was mildly dilated, with a stone causing an obstruction. The largest diameter was 8 mm. Biliary sphincterotomy was made with a Fusion OMNI sphincterotome using ERBE electrocautery. There was no post-sphincterotomy bleeding. To discover objects, the biliary tree was swept with a 15 mm balloon starting at the bifurcation. Sludge was swept from the duct. A few stones were removed. No stones remained. Pus was swept from the duct. One 10 Fr by 8 cm biliary stent with a single external flap and a single internal flap was placed 8 cm into the common bile duct. Bile flowed through the stent. The stent was in good position. The endoscope was withdrawn from the patient. The total fluoroscopy exposure time was 17 seconds. Indomethacin 100 mg was given via suppository to decrease the risk of post-ERCP pancreatitis (PEP). Impression: - The major papilla appeared normal. - The entire main bile duct was mildly dilated, with a stone causing an obstruction. - Choledocholithiasis and cholangitis was found. Complete removal was accomplished by biliary sphincterotomy and balloon extraction. - One biliary stent was placed into the common bile duct. - Indomethacin given to decrease risk of post-ERCP pancreatitis. Recommendation: - Avoid aspirin and nonsteroidal anti-inflammatory medicines for 1 week. - Clear liquid diet today. - Use broad spectrum antibiotics for 2 weeks. - Cholecystectomy per General Surgery - Repeat ERCP in 6 weeks to remove stent. Gayathri Harrington D.O. Gayathri Harrington, 09/23/2022 2:12:27 PM This report has been signed electronically. Note Initiated On: 09/23/2022 1:47 PM Number of Addenda: 0 I attest to the content of the Intraoperative Record and orders documented therein, exceptions below {[id number]}
--- NOTE | 2022-09-23 14:52 | Fluoroscopy Report ---
[place] ERCP biliary ductal CLINICAL HISTORY: ERCP with stent placement.Cholelithiasis. COMPARISON STUDY: MRCP 09/23/2022. FLUOROSCOPY TIME: 17 seconds FLUOROSCOPY IMAGES: 8 Ka,r: 4.9 mGy FINDINGS: The ampulla was cannulated and contrast was injected into the common bile duct. A balloon s weep was performed. This is followed by placement of a common bile duct stent which appears in good p osition. IMPRESSION: Fluoroscopic assistance as above. ACT 112: Negative or not required by law. Electronically signed by: Travis Yu M.D. 09/23/2022 2:51 PM
[2022-09-23] MEDS ORDERED: GLYCOPYRROLATE 0.2 MG/ML VIAL ONE (15:09)
[2022-09-23] MEDS ORDERED: NEOSTIGMINE METHYLSULFATE 1 MG/ML 10ML VIAL ONE (15:09)
--- NOTE | 2022-09-23 15:30 | Post Operative Brief Note ---
PG Immediate Post Op with CF Date of Surgery September 23, 2022 Pre & Post Diagnosis Operation Date: 09/23/22 13:30 Pre-Op Diagnosis: Acute cholecystitis Post-Op Diagnosis: Acute cholecystitis I identified the patient and participated in the time-out.: Yes Procedure Operation Date: 09/23/22 13:30 Actual Procedures p Endoscopic Retrograde Cholangiopancreatotomy(Not Applicable) - DO priyanka Yoon Laparoscopic Cholecystectomy(Not Applicable) - Howard Malone DO Surgeon Howard Malone, Page Technician none Estimated Blood Loss 5 Findings Consistent with Post-Op Diagnosis Thickened distended gallbladder with dark, thick bile and lang stones Specimens Specimen Description: Permanent A. Gallbladder Anesthesia Type General Complications None
[2022-09-23] MEDS ORDERED: ATROPINE SULFATE 0.1 MG/ML 10ML SYR IV PRN (16:02)
[2022-09-23] MEDS ORDERED: ePHEDrine sulfate 50 MG/ML AMP IV PRN (16:02)
--- NOTE | 2022-09-23 16:03 | Anesthesiology Progress Note ---
Date of Service September 23, 2022 Anesthesia Post Procedure Vital Signs Vital Signs: Temp Pulse Pulse Pulse Resp BP BP 09/23/22 15:45 66 15 136/74 09/23/22 15:37 36.2 C L 73 14 123/68 09/23/22 12:23 36.8 C 77 20 148/86 H 09/23/22 07:10 37.1 C 65 16 124/80 09/23/22 02:37 37.1 C 64 18 125/79 09/23/22 02:10 09/23/22 02:04 63 20 09/22/22 22:09 66 18 09/22/22 19:38 09/22/22 19:38 69 18 09/22/22 19:38 09/22/22 17:59 36.8 C 67 20 145/77 H BP Pulse Ox O2 Del Method O2 Flow Rate 09/23/22 15:45 100 Oxymask 10 09/23/22 15:37 98 Oxymask 10 09/23/22 12:23 98 Room Air 09/23/22 07:10 99 Room Air 09/23/22 02:37 99 Room Air 09/23/22 02:10 100 Room Air 09/23/22 02:04 129/65 100 Room Air 09/22/22 22:09 140/74 100 Room Air 09/22/22 19:38 Room Air 09/22/22 19:38 135/80 99 Room Air 09/22/22 19:38 Room Air 09/22/22 17:59 100 Room Air Pain Intensity Right Upper Abdomen: Pain Intensity: 5 Left Jaw: Pain Intensity: 6 Transfer of Care Handoff Completed per policy Notes Mental Status: alert / awake / arousable Patient Amnestic to Procedure: Yes Nausea / Vomiting: adequately controlled Pain: adequately controlled Airway Patency, RR, SpO2: stable & adequate BP & HR: stable & adequate Hydration State: stable & adequate Anesthetic Complications: no major complications apparent
[2022-09-23] MEDS: fentaNYL citrate PF 100 MCG/2 ML VIAL IV PRN ×4 (16:06→16:22)
--- NOTE | 2022-09-23 16:25 | Operative Report ---
PG Post Operative Report Pre & Post Diagnosis Operation Date: 09/23/22 13:30 Pre-Op Diagnosis: Acute cholecystitis Post-Op Diagnosis: Acute cholecystitis I identified the patient and participated in the time-out.: Yes Procedure Operation Date: 09/23/22 13:30 Actual Procedures p Endoscopic Retrograde Cholangiopancreatotomy(Not Applicable) - Gayathri Harrington DO s Laparoscopic Cholecystectomy(Not Applicable) - Howard Malone DO Surgeon Howard Malone, Word Processor none Estimated Blood Loss 5 Findings Consistent with Post-Op Diagnosis Specimens Gallbladder Drains None Anesthesia Type General Complications None Indications Choledocholithiasis with signs of acute cholecystitis secondary to cholelithiasis Description of Procedure The patient was brought back to the operating room and placed on the operating room in supine position. She initially underwent an ERCP by Dr. Harrington. The details of the procedure can be found in a separate operative report. After the ERCP the patient's abdomen was prepped and draped in typical sterile fashion. A timeout was conducted. A small stab incision was made at the inferior umbilicus using an 11 blade. Intra-abdominal access was gained with a Veress needle after elevating the fascia with a towel clamp. CO2 insufflation was initiated and a goal pressure of 15 mmHg was reached. A 5 mm laparoscope was used to inspect the intra-abdominal contents. There were no injuries noted from insertion of the Veress needle or the first trocar. Under direct visualization, a 12 mm port was inserted at the epigastric area after an incision was made with the 11 blade. 2 additional 5 mm trocars were inserted under direct visualization along the right subcostal border. There were no injuries caused by insertion of any of these trocars. The gallbladder was noted in the right upper quadrant and was unable to be grasped at the fundus due to severe distention and wall thickening. A needle and suction were used in an attempt to decompress the gallbladder. No fluid was aspirated initially. The needle was removed and thick dark bile along with a few cold stones evacuated from the gallbladder through the puncture hole. This was quickly suctioned using the suction irrigation system. The gallbladder was now able to be grasped at the fundus and retracted above the liver. The infundibulum was then grasped and retracted inferior laterally. The cystic duct was dissected out using a [place] dissector as was the cystic artery. A 10 mm clip corporate secretary needed to be used for the cystic duct because it was enlarged. 210 mm clips were placed proximally and 1 distally. A 5 mm clip corporate secretary was used for the cystic artery in the same fashion. A laparoscopic scissor was used to transect the cystic artery followed by the cystic duct. The gallbladder was carefully and gingerly cauterized away from the liver bed. There was a small arterial posterior branch to the gallbladder that began to bleed with this dissection. This vessel was clipped proximally with 2 5 mm clips as well. The remainder of the gallbladder was cauterized away from the liver. The liver bed was thoroughly inspected for hemostasis. Hemostasis was achieved using cautery. The area was copiously irrigated and suction above and below the liver. Once this area appeared to be dry and hemostasis was confirmed the gallbladder was placed in an Endo Catch bag and removed. The gallbladder was placed in a labeled container and sent to pathology for further analysis. All instruments were removed from the abdomen. CO2 insufflation was discontinued and excess air was evacuated from the patient's abdomen. All trocars were removed as well. The epigastric incision was closed at the level of the fascia with 0 Vicryl. Local anesthetic was injected into the subcutaneous tissues at all 4 incision sites. 4-0 Vicryl suture was used to approximate the skin. The incisions were all sealed with Dermabond. The patient tolerated the procedure well. She was awakened from anesthesia and transferred to recovery in stable condition I attest to the content of the Intraoperative Record and any orders documented therein. Any exceptions are noted below.
--- NOTE | 2022-09-23 18:43 | Hospitalist Progress Note ---
Date of Service September 23, 2022 Assessment & Plan (1) Acute cholecystitis: Plan: 41-year-old female with 6-month history of biliary colic presenting with 1 day of chronic severe right upper quadrant pain with associated nausea, vomiting, sweats and chills. Work-up as above suggestive of acute cholecystitis. Also with abnormal liver studies AST = 550, ALT = 323, alkaline phosphatase = 139 and total bilirubin = 2.8 Acute cholecystitis ERCP 09/23/2022: Bile duct dilated with a stone causing obstruction, choledocholithiasis and cholangitis were found, complete removal via biliary sphincterotomy and balloon extraction. 1 stent placed into CBD. Indomethacin given. Staged lap cholecystectomy 09/23/2022, 5 cc blood loss Clear liquid diet today, continue cefoxitin for 2 weeks Avoid aspirin/anti-inflammatories for 7 days Follow-up with GI for repeat ERCP in 6 weeks to remove Trend CMP in the morning (2) Abnormal liver function test: Plan: As above. (3) Depression: Plan: Chronic. Continue home Cymbalta and doxepin F/E/Nclears ProphylaxisSCDs to bilateral lower extremities Codefull Disposition: Medical/surgical Admission and Anticipated Discharge Date Admission Date: September 22, 2022 Subjective Patient is seen at the bedside postoperatively. She reports she feels well, but is little crampy in the stomach. Denies shortness of breath, difficulty breathing. No fevers or chills. She thinks her pain is improved compared to before she went to the surgery. Has not yet had any clears or anything to eat. Review of Systems Review of Systems: All systems reviewed & are unremarkable except as noted in Subjective Physical Exam Physical Exam: General: Somnolent, but awakens easily and A&Ox3. NAD. Cooperative. HEENT: Atraumatic, normocephalic. Pulse equal and reactive to light. Vision and hearing grossly intact Pulm: CTAB A&P. -wheezes, -rales, -rhonchi. Symmetrical chest rise. No increased work of breathing. No respiratory distress. Cardiac: RRR, -mrg. Radial pulses intact and symmetrical. Abdominal: Lap incisions intact with Dermabond, no dehiscence/discharge. Abdomen is with mild postoperative tenderness, no rebound/guarding Results & Data Results & Data Vital Signs (Past 12 Hours) Vital Signs Temp Pulse Pulse Resp BP Pulse Ox O2 Del Method 09/23/22 17:51 36.9 C 77 18 145/89 H 99 Nasal Cannula 09/23/22 17:15 36.9 C 74 14 148/87 H 98 Nasal Cannula 09/23/22 16:57 152/88 H 09/23/22 16:44 37.2 C 78 18 158/100 H 99 Nasal Cannula 09/23/22 16:25 36.8 C 68 12 148/87 H 99 Nasal Cannula 09/23/22 16:05 69 12 127/70 96 Room Air 09/23/22 16:15 73 18 147/85 H 99 Nasal Cannula 09/23/22 15:55 80 13 132/74 100 Oxymask 09/23/22 15:45 66 15 136/74 100 Oxymask 09/23/22 15:37 36.2 C L 73 14 123/68 98 Oxymask 09/23/22 12:23 36.8 C 77 20 148/86 H 98 Room Air 09/23/22 07:10 37.1 C 65 16 124/80 99 Room Air O2 Flow Rate 09/23/22 17:51 3 09/23/22 17:15 3 09/23/22 16:57 09/23/22 16:44 3 09/23/22 16:25 3 09/23/22 16:05 09/23/22 16:15 3 09/23/22 15:55 10 09/23/22 15:45 10 09/23/22 15:37 10 09/23/22 12:23 09/23/22 07:10 PG Care Time/CCT Total # of Minutes Spent Total Time Spent with Patient: Total time spent is greater than 50% in coordination of care (as documented) at patient's floor/unit and/or counseling patient: Coding Level of Care Code 36260 SUB INP/OBS CARE 2/35MIN Diagnoses Acute cholecystitis K81.0 Abnormal liver function test R79.89 Depression F32.9
[2022-09-23] MEDS ORDERED: DOXEPIN HCL 50 MG CAPSULE PO SCH (21:00)
[2022-09-24] MEDS: cefOXitin 2,000 MG in DEXTROSE 5% 50 ML IV SCH ×2 (05:46→12:22)
[2022-09-24] MEDS: DULoxetine HCL 30 MG CAP PO SCH (08:27)
[2022-09-24 08:44] LABS: Basophils # (auto) 0.02 K/uL (0-0.2); Basophils % (auto) 0.2 %; Hematocrit (blood only) 31.7 % (37.0-47.0); Immature Granulocytes # (auto) 0.08 K/uL (0.01-0.20); Immature Granulocytes % (auto) 0.8 %; Lymphocytes # (auto) 0.69 K/uL (1.2-3.4); Lymphocytes % (auto) 6.5 %; Mean Corpuscular Hemoglobin 31.4 pg (25.0-34.0); Mean Corpuscular Hgb Conc 34.7 g/dL (32.0-36.0); Mean Corpuscular Volume 90.6 fL (80.0-100.0); Mean Platelet Volume 10.6 fL (9.4-12.4); Monocytes # (auto) 0.66 K/uL (0.11-0.59); Monocytes % (auto) 6.2 %; Neutrophils % (auto) 86.3 %; Platelet Count 166 K/uL (130-400); RDW Coefficient of Variation 12.3 % (11.5-14.5); RDW Standard Deviation 40.8 fL (36.4-46.3); White Blood Count 10.65 K/ul (4.8-10.8)
[2022-09-24 09:01] LABS: Albumin Globulin Ratio 1.6 (0.9-2); Albumin Level 3.8 gm/dl (3.4-5.0); BUN Creatinine Ratio 12.5 (10-20); Bilirubin Direct 1.3 mg/dl (0-0.2); Bilirubin,Total 2.7 mg/dl (0.2-1.0); Calcium 8.6 mg/dl (8.6-10.3); Creatinine Clr Calc Pharmacy 92.4 ml/min; Est GFR (African American) 106.9 ml/min; Est GFR (Non-African American) 92.2 ml/min; Globulin 2.4 gm/dl (2.5-4.0); Potassium 3.9 mmol/L (3.5-5.1); Total Protein 6.2 gm/dl (6.0-8.3)
[2022-09-24] MEDS ORDERED: oxyCODONE HCL IR 5 MG TAB (IMMEDIATE RELEASE) PO PRN ×2 (09:28)
--- NOTE | 2022-09-24 09:35 | Surgery Progress Note ---
I have seen this patient with the surgical PA for evaluation and planning. I agree with what is written. Date of Service September 24, 2022 Assessment & Plan (1) Acute cholecystitis: Plan: POD#1 ERCP with GI and lap cara with Dr. Nidia Cox ERCP results noted + choledocholithiasis and cholangitis. complete course of abx per GI WBC 10. LFTs downtrending, Tb: 2.7(4.8) Can advance diet as tolerates. will add po pain control May discharge from our standpoint when cleared by medicine and GI F/u in clinic with Dr. Malone within 2 weeks time (2) Choledocholithiasis: Admission and Anticipated Discharge Date Admission Date: September 22, 2022 Subjective Patient is feeling well. Tolerating clears. Some pain present but manageable. No n/v. passing some gas. Physical Exam Physical Exam: awake/alert Respiratory: normal respiratory effort Gastrointestinal (Abdomen): Inspection/Auscultation: + abdominal surgical incision (c/d/i with no signs of infection and has skin glue); abdomen not distended Percussion/Palpation: + abdomen tender (expected noah incisional discomfort) and abdomen soft Results & Data Vital Signs (Past 12 Hours) Vital Signs Temp Pulse Resp BP Pulse Ox O2 Del Method 09/24/22 07:09 37.0 C 59 L 16 108/64 97 Room Air 09/24/22 03:34 36.9 C 67 18 104/62 95 Room Air 09/23/22 22:56 37.1 C 92 H 18 128/55 L 96 Room Air PG Care Time/CCT Total # of Minutes Spent Total Time Spent with Patient: Total time spent is greater than 50% in coordination of care (as documented) at patient's floor/unit and/or counseling patient: Coding Level of Care Code 02835 Post Operative Follow-Up Diagnoses Acute cholecystitis K81.0 Choledocholithiasis K80.50
--- NOTE | 2022-09-24 13:33 | Communication Note ---
Date of Service: September 24, 2022 Pt w/ elevated LFTs, cholelithiasis, underwent ERCP yesterday 09/23/22: Impression: - The major papilla appeared normal. - The entire main bile duct was mildly dilated, with a stone causing an obstruction. - Choledocholithiasis and cholangitis was found. Complete removal was accomplished by biliary sphincterotomy and balloon extraction. - One biliary stent was placed into the common bile duct. Recommendation: - Avoid aspirin and nonsteroidal anti-inflammatory medicines for 1 week. - Advance diet as tolerated - Use broad spectrum antibiotics for 2 weeks. - She had cholecystectomy per General Surgery - Repeat ERCP in 6 weeks to remove stent - our office will arrange. She is doing well today. Minimal pain. Tolerating her diet. No n/v, fever, chills, LFTs trending down. No leukocytosis. [facility] will sign off, please call with questions
--- NOTE | 2022-09-24 17:34 | Discharge Summary ---
Date of Service September 24, 2022 Admission HPI Per Admitting Provider Michelle Albarran is a pleasant 41-year-old female with no significant past medical or surgical history presenting with acute onset of right upper quadrant pain. Patient reports she has experienced intermittent right upper quadrant pain ongoing for the last 6 months. Yesterday 09/22/2022 around 03 100 patient developed acute onset of severe right upper quadrant pain. The pain has been more persistent than prior episodes, is fairly severe at times and has been constant throughout the day. Also with nausea with several episodes of nonbloody/nonbilious vomiting, sweats and chills. She had some mild diarrhea as well. No additional complaints at this time. Patient specifically denies chest pain, palpitations, cough, shortness of breath. Denies urinary symptoms. Denies rash. In the ER she is afebrile, hemodynamically stable and nontoxic in appearance Work-up suggestive of acute cholecystitis with abnormal liver studies as below. She was evaluated by general surgery ER course: Cefoxitin, normal saline solution Principal Diagnosis Problem 1 Discharge Exam General: d A&Ox3. NAD. Cooperative. HEENT: Atraumatic, normocephalic. Pulse equal and reactive to light. Vision and hearing grossly intact Pulm: CTAB A&P. -wheezes, -rales, -rhonchi. Symmetrical chest rise. No increased work of breathing. No respiratory distress. Cardiac: RRR, -mrg. Radial pulses intact and symmetrical. Abdominal: Lap incisions intact with Dermabond, no dehiscence/discharge. Abdomen is with mild postoperative tenderness, no rebound/guarding Discharge Data Allergies Allergy/AdvReac Type Severity Reaction Status Date / Time No Known Allergies Allergy Unknown Verified 02/29/16 22:44 Consultations 09/22/22 23:25 ED Decision to Admit Stat 09/23/22 02:59 Consult Gastroenterology Routine Procedures Performed Operation Date: 09/23/22 13:30 Actual Procedures p Endoscopic Retrograde Cholangiopancreatotomy(Not Applicable) - Gayathri Harrington DO s Laparoscopic Cholecystectomy(Not Applicable) - Howard Malone DO Ordered Studies 09/22/22 18:02 US gallbladder Stat 09/23/22 01:56 MR MRCP Urgent 09/23/22 13:15 FL ERCP biliary ductal Routine Hospital Course (1) Acute cholecystitis: 41-year-old female with 6-month history of biliary colic presenting with 1 day of chronic severe right upper quadrant pain with associated nausea, vomiting, sweats and chills. Work-up as above suggestive of acute cholecystitis. Also with abnormal liver studies AST = 550, ALT = 323, alkaline phosphatase = 139 and total bilirubin = 2.8 Acute cholecystitis ERCP 09/23/2022: Bile duct dilated with a stone causing obstruction, choledocholithiasis and cholangitis were found, complete removal via biliary sphincterotomy and balloon extraction. 1 stent placed into CBD. Indomethacin given. Staged lap cholecystectomy 09/23/2022, 5 cc blood loss -tolerating her regular diet. will discharge on augmentin to complete 2 weeks. Avoid aspirin/anti-inflammatories for 7 days Follow-up with GI for repeat ERCP in 6 weeks to remove (2) Abnormal liver function test: As above. (3) Depression: Chronic. Continue home Cymbalta and doxepin Total Time Total Time Spent Total Time Spent (In Minutes): 32 Discharge Plan Discharge Items Patient Disposition: Home - Self-Care Reason For Visit: ACUTE CHOLECYSTITIS Discharge Diagnosis: acute cholecystitis Activity: Per Instructions section Lifting: No more than 10 pounds Bathing Comment: may shower; no soaking in tubs/pools Exercise/Sports: Wait until after follow-up appointment Driving/Machine Use: no driving while taking narcotics for pain Non-emergency contact: Specialist Call non-emergency contact if: you have any medication questions, your symptoms worsen, your pain is not controlled, you have a fever, your temperature is above 101.5, your wound has increased redness, your wound has increased drainage and your wound pain has increased Follow-up/Referrals: Leigh Ann Merrill PA-C [Primary Care Provider] - Howard Malone DO [Physician] - (Please call to schedule follow up in clinic within 2 weeks) Diet: Regular Addtl Attending Provider Instructions: - Avoid aspirin and nonsteroidal anti-inflammatory: ibuprofen, aleve or any over the counter pain medicine for 1 week. -Tylenol (acetaminophen) is the only pain medicine you can use that is over the counter during this period. - Advance diet as tolerated -continue antibiotics until the pills are done, take next dose tonight. -use an alarm system to remind you so you dont miss your pill, perhaps a reminder on your phone. - Repeat ERCP in 6 weeks to remove stent - This will be arranged. Followup in clinic with Dr. Malone within 2 weeks time Pending Studies at Discharge: Yes Studies:: surgical pathology Stand-Alone Forms: My [facility], Smoking Cessation Medications and DC Order Prescriptions: New oxycodone 5 mg tablet 5 - 10 mg PO .[id number] PRN (Reason: pain, for initial therapy, max 6 tabs per day) Qty: 15 0RF amoxicillin-pot clavulanate 875-125 mg tablet 1 tab PO BID Qty: 26 0RF Continued doxepin 50 mg capsule 50 mg PO HS duloxetine 30 mg capsule,delayed release(DR/EC) 30 mg PO BID Discharge Orders: Discharge Order (Routine); Ordered 09/24/22 Ordered By: Agustin Kevin Admission Data Admit Date/Time: 09/22/22 23:43 Attending Provider: Agustin Kevin Admit Provider: Berta Nance Primary Care Provider: Leigh Ann Merrill Other Providers: Berta Nance ; Abhay Gary Jr Coding Level of Care Code 87132 INP/OBS DISCH >30 MIN Diagnoses Acute cholecystitis K81.0 Abnormal liver function test R79.89 Depression F32.9
== END 2022-09-24 18:39 | disposition home or self-care (01) | DRG 419 ==
LOC: ED 17:47 → SUATTDRO 23:43 → EDINP 23:43 → 3W 09-23 02:10